=== PATIENT | male | born 1990 | race Two or more races ===

== ENCOUNTER 2018-04-30 15:41 | Emergency (ER) | payer MEDICAID ==
[~2018-04-30] VITALS: Ht 177.8 cm; Wt 93.0 kg
[2018-04-30] MEDS ORDERED: IBUPROFEN 600MG TABLET PO ONE (22:45)
[2018-04-30] MEDS ORDERED: TETANUS, DIPHTHERIA, PERTUSSIS VAC/PF 0.5ML (>7YR OLD) IM ONE (22:45)
[2018-04-30] MEDS ORDERED: LIDOCAINE HCL/PF 1% 10 MG/ML 5ML VIAL IJ ONE (22:45)
[2018-04-30] MEDS ORDERED: BACITRACIN ZINC OINT UDPKT TOP ONE (22:45)
[2018-04-30] MEDS ORDERED: ACETAMINOPHEN 325MG TABLET PO ONE (22:45)
[2018-05-01 00:56] VITALS: BP 148/105
== END 2018-05-01 00:57 | disposition home or self-care (01) ==
LOC: ER 15:41
DX: S20.212A Contusion of left front wall of thorax, initial encounter (principal); S20.211A Contusion of right front wall of thorax, initial encounter; J98.11 Atelectasis; V43.62XA Car passenger injured in collision with other type car in traffic accident, initial encounter; Y93.89 Activity, other specified; Y92.410 Unspecified street and highway as the place of occurrence of the external cause; Z88.2 Allergy status to sulfonamides
CPT/HCPCS: 71250; 93005; 99284